=== PATIENT | male | born 1990 | race Hispanic/Latino ===

== ENCOUNTER 2018-07-01 09:31 | Observation (INO) | payer OTHER ==
[~2018-07-01] VITALS: Ht 179.1 cm; Wt 95.2 kg
[2018-07-01 10:36] LABS: EOSINOPHILS % (AUTO) 5.2 % (0.0-8.0); LYMPHOCYTES % (AUTO) 37.6 % (21.0-51.0); MEAN CORPUSCULAR HEMOGLOBIN 29.5 pg (27.0-33.0); MEAN CORPUSCULAR HGB CONC 33.9 g/dL (32.0-36.0); MONOCYTES % (AUTO) 6.9 % (3.0-13.0); NEUTROPHILS % (AUTO) 49.3 % (40.0-77.0); NUCLEATED RED BLOOD CELLS 0.1 % (0.0-0.19); PLATELET COUNT (AUTO) 247 K/uL (130-400); RED BLOOD CELL COUNT(AUTO) 4.94 MIL/uL (4.50-6.20); RED CELL DISTRIBUTION WIDTH 13.3 % (11.0-15.5); WHITE BLOOD COUNT (AUTO) 7.3 K/uL (4.8-10.8)
[2018-07-01 10:39] VITALS: BP 131/81
[2018-07-01] MEDS ORDERED: IBUP-2077 PO (10:41)
[2018-07-01] MEDS ORDERED: ACET-66 PO (10:41)
[2018-07-01 10:43] LABS: POTASSIUM 3.9 mmol/L (3.5-5.1)
[2018-07-06] VITALS (22 sets, daily range): BP systolic 104–130; BP diastolic 46–80
[2018-07-06] MEDS ORDERED: BUPIVACAINE/EPI/PF 0.25% 50 ML VIAL ONE (06:23)
[2018-07-06] MEDS ORDERED: DURAMORPH PF1 MG/ML 10ML AMP IV ONE (06:24)
[2018-07-06] MEDS ORDERED: THROMBIN-JMI 20000 UNIT KIT TP ONE (06:24)
[2018-07-06] MEDS ORDERED: BACITRACIN 50,000 UNIT VIAL ONE (06:24)
[2018-07-06] MEDS ORDERED: LACTATED RINGERS 1000ML 1,000 ML IV ONE (06:30)
[2018-07-06] MEDS: CEFAZOLIN SODIUM 1 GM VIAL ONE ×2 (06:55→08:30)
[2018-07-06] MEDS ORDERED: MIDAZOLAM HCL 1 MG/ML 2ML VIAL ONE (07:18)
[2018-07-06] MEDS ORDERED: DEXAMETHASONE SOD PHOSPHATE 10MG/ML 1ML VIAL ONE (07:59)
[2018-07-06] MEDS ORDERED: LIDOCAINE PF 2% 5ML ABBOJECT ONE (07:59)
[2018-07-06] MEDS ORDERED: SUCCINYLCHOLINE CHLORIDE 20 MG/ML 10 ML VIAL ONE (07:59)
[2018-07-06] MEDS ORDERED: PHENYLEPHRINE HCL 10 MG/ML 1ML VIAL IV ONE (07:59)
[2018-07-06] MEDS ORDERED: PROPOFOL 10 MG/ML 20ML VIAL IV ONE (08:00)
[2018-07-06] MEDS ORDERED: ROCURONIUM 10MG/1ML SYR 10 MG/ML ML ONE (08:00)
[2018-07-06] MEDS ORDERED: FENTANYL CITRATE PF 50 MCG/1 ML 5ML AMP IV ONE (08:00)
[2018-07-06] MEDS ORDERED: MORPHINE SULFATE 2 MG/ML 1ML SYG IVP PRN (10:45)
[2018-07-06] MEDS ORDERED: HYDROCODONE/ACETAMINOPHEN 5/325 MG TAB PO PRN (10:45)
[2018-07-06] MEDS ORDERED: SODIUM CHLORIDE 0.9% 10 ML VIAL IVP PRN (10:45)
[2018-07-06] MEDS ORDERED: PROMETHAZINE HCL 25 MG/ML 1ML AMPULE IM PRN (10:45)
[2018-07-06] MEDS ORDERED: ACETAMINOPHEN EXTRA STRENGTH 500 MG TABLET PO SCH (11:15)
[2018-07-06] MEDS: LACTATED RINGERS 1000ML 1,000 ML IV SCH (12:00)
--- NOTE | 2018-07-06 12:00 | NUR ---
LEFT EYE REDNESS NOTED LEFT EYE SCLERA AND EYELID IRRITATED AND REDNESS. PER PT, STATES HE FEELS LIKE DEBRIS ARE IN EYE. WARM WASHCLOTH GIVEN TO PATIENT TO CLEANSE EYELID. PUPIL REACTIVE TO LIGHT. PT STATES NO PAIN TO LEFT EYE. WILL CONTINUE TO MONITOR PT CLOSELY. Addendum: 07/06/18 at 1242 by JOSE JUSTIN RN RN Amended: Links added.
--- NOTE | 2018-07-06 12:00 | NUR ---
BM LAST REPORTED BM OF 07/04/18. I DID NOT SEE THIS BM BUT PATIENT STATES HE REMEMBERS IT BEING BROWN, NORMAL PATTERN AND SOFT CONSISTENCY. Addendum: 07/06/18 at 1242 by JOSE JUSTIN RN RN Amended: Links added.
[2018-07-06] MEDS: DEXAMETHASONE SOD PHOSPHATE 4 MG/ML 1ML VIAL IVP SCH ×3 (12:11→23:02)
[2018-07-06] MEDS: CEFAZOLIN SODIUM 1 GM VIAL IVP SCH ×2 (16:40→18:45)
[2018-07-07] MEDS: LACTATED RINGERS 1000ML 1,000 ML IV SCH
[2018-07-07 03:10] VITALS: BP 105/48
[2018-07-07] MEDS: DEXAMETHASONE SOD PHOSPHATE 4 MG/ML 1ML VIAL IVP SCH (03:59)
[2018-07-07 07:52] VITALS: BP 108/56
--- NOTE | 2018-07-07 09:00 | NUR ---
BM LAST REPORTED BM OF 07/04/18. I DID NOT SEE THIS BM BUT PATIENT STATES IT WAS BROWN IN COLOR, NORMAL PATTERN AND SOFT CONSISTENCY. Addendum: 07/07/18 at 1039 by JOSE JUSTIN RN RN Amended: Links added.
--- NOTE | 2018-07-07 10:00 | NUR ---
DISCHARGE DISCHARGE TEACHING DONE WITH PATIENT AND MOTHER USING TEACHBACK METHOD, VERBALIZED UNDERSTANDING. NO NOTED SOB OR DISTRESS. S/P VOID AFTER GIPSON CATH REMOVAL. NEW MEDICATION ADMINISTRATION TEACHING DONE WITH PATIENT, VERBALIZED UNDERSTANDING. PT AWARE OF NEED TO ATTEND DR. WILBURN APPOINTMENT. IV REMOVED, CATH TIP INTACT. DRESSING TO LOWER BACK CHANGED ORDERED. INCISION IS DRY AND INTACT,JOEY IN PLACE. INCISION TEACHING DONE WITH PATIENT AND MOTHER, VERBALIZED UNDERSTANDING. NOTED SOB OR DISTRESS. PENDING TO BE TRANSFERRED OUT VIA PRIVATE VEHICLE.
== END 2018-07-07 10:26 | disposition home or self-care (01) ==
LOC: EDSTATUS 10:30 → DAHIP 07-06 06:00 → EDSTATUS 07-06 10:30 → 4AH 07-06 11:37
PROVIDERS: ADMIT Neurological Surgery; ATTEND Neurological Surgery
DX: M51.16 Intervertebral disc disorders with radiculopathy, lumbar region (principal); Z79.899 Other long term (current) drug therapy
CPT/HCPCS: 36415; 63047; 71045; 72020; 80051; 85025; 93005; 96374; 96376 ×2; A4218; A4344; A4510; A4600; A4649 ×5; G0378 ×29; J0330; J0690 ×2; J1100 ×5; J2001; J2250; J2274; J2370; J2704; J3010; J3490; J7120 ×3